=== PATIENT | male | born 1995 | race Caucasian/White ===

== ENCOUNTER 2021-04-01 16:05 | Outpatient (REF) | payer OTHER, SELFPAY | END 2021-04-01 16:06 | disposition home or self-care (01) | LOC: HO.LAB 16:05 | PROVIDERS: Visit Provider Nurse Practitioner Family | DX: Z20.822 Contact with and (suspected) exposure to COVID-19 (principal); R50.9 Fever, unspecified | CPT/HCPCS: U0003; U0005 ==

== ENCOUNTER 2022-03-06 08:51 | Outpatient (REF) | payer OTHER, SELFPAY ==
[2022-03-06 09:31] LABS: Binax Now Covid-19 Ag Positive (Negative)
[2022-03-06 09:32] LABS: Binax Internal Control QC Valid
== END 2022-03-06 08:52 | disposition home or self-care (01) ==
LOC: HO.HMGCLDS 08:51
PROVIDERS: Visit Provider Internal Medicine
DX: Z20.822 Contact with and (suspected) exposure to COVID-19 (principal); J06.9 Acute upper respiratory infection, unspecified
CPT/HCPCS: 87811; C9803

== ENCOUNTER 2024-09-01 12:52 | Outpatient (AMB) | payer OTHER, SELFPAY ==
--- NOTE | 2024-09-01 14:01 | MHC.OFFWIV ---
Intake Vital Signs 09/01/24 14:03 Height 5 ft 6 in Weight 165 lb BMI 26.6 BP 120/80 Blood Pressure Location Lt brachial Position Sitting Pulse 75 Pulse Source Pulse Oximeter Temp 98.5 F Temp Source Oral Pulse Oximetry (%) 98 Oxygen Delivery Method Room Air Intake Visit Reasons: EP-fever, chills, sore throat, body ache,dizziness Intake Note: Patient here for cough, fever, chills, body aches and dizziness that started 08/29. Patient Tobacco Use Status: Former Tobacco user Allergies No Known Allergies Allergy (Verified 09/01/24 14:04) Do you need a note to return to daycare/school/sports/work: No HPI EP-fever, chills, sore throat, body ache,dizziness HPI Details This is a 29-year-old male patient who presents to the walk-in clinic today with a 4 day history of body aches, headaches, fever, sore throat, productive cough with yellow/green sputum. Denies any shortness of breath or GI symptoms. Denies any known exposure to sick contacts. He states he is starting to feel somewhat improved today. [facility] Social History Patient Tobacco Use Status: Former Tobacco user Review of Systems Const All systems reviewed & are unremarkable except as noted in HPI and below Physical Exam Vital Signs: Last Vital Signs Temp 98.5 F 09/01/24 14:03 Pulse 75 09/01/24 14:03 BP 120/80 09/01/24 14:03 Pulse Ox 98 09/01/24 14:03 Oxygen Delivery Method Room Air 09/01/24 14:03 BMI result Body Mass Index 26.6 Const General: cooperative, healthy appearing and no acute distress HEENT Head: Yes normal to inspection Ears: hearing grossly normal bilaterally General nose exam: Normal external nose present Face and sinus: Yes normal facial exam Mouth: Normal oral and palatal mucosa present Throat: Yes abnormal tonsil (mild tonsilar hypertrophy) Neck Neck: Yes no lymphadenopathy Resp Effort & Inspection: normal respiratory effort and Actively coughing Quality: wet Auscultation: clear to auscultation bilaterally Cardio Rate: regular rate Rhythm: regular rhythm Skin General skin exam: no rashes or lesions noted Extrem General: Yes capillary refill normal and Yes no clubbing, cyanosis or edema Psych Appearance: grossly normal Mental Status: mental status grossly normal Speech and movement: Normal speech and movement present Results AMB Rapid Strep AMB Rapid Strep Negative Last Edit by STACIE Calixto on 09/01/24 14:27 Assessment & Plan Assessment & Plan (1) Upper respiratory infection: Code(s): J06.9 - Acute upper respiratory infection, unspecified Qualifiers: URI type: unspecified viral URI Qualified Code(s): J06.9 - Acute upper respiratory infection, unspecified Plan: Symptoms consistent with viral illness. Rapid strep was negative. Patient declines viral testing. We discussed self-limiting nature of viral illnesses and conservative measures for these symptoms, including otc cold/flu medications, rest, hydration, healthy food/vitamin intake. We discussed lack of efficacy with antibiotics for viral illnesses. I do feel he may benefit from short course of benzonatate. Reviewed indications, use, possible side effects of these medications. If he does not improve with conservative measures, or if symptoms worsen/new symptoms develop, he can return to the clinic or the emergency department if severe. Patient verbalizes understanding and agrees to plan. Orders: Orders AMB Rapid Strep Screen Today Z13.9 - Encounter for screening, unspecified Medications: New benzonatate 100 mg PO BID 7 days PRN 14 caps 0RF cough R05.9 - Cough, unspecified Coding Level of Care Code Est Pt Level 4 (66427) Diagnoses Viral upper respiratory tract infection J06.9 URI type: unspecified viral URI
[2024-09-01 14:03] VITALS: BP 120/80; PULSE 75; TEMP 36.9; O2SAT 98; BMI 26.6
== END 2024-09-01 14:34 | disposition home or self-care (01) ==
PROVIDERS: PCP Nurse Practitioner Family; Visit Provider Nurse Practitioner Family
DX: J06.9 Acute upper respiratory infection, unspecified (principal); Z13.9 Encounter for screening, unspecified

== ENCOUNTER → 2024-09-01 12:52 | Outpatient (BNVA) | payer OTHER, SELFPAY | PROVIDERS: PCP Nurse Practitioner Family | DX: J06.9 Acute upper respiratory infection, unspecified (principal) | CPT/HCPCS: 87880; 99212 ==

== ENCOUNTER 2024-10-19 08:11 | Outpatient (AMB) | payer OTHER, SELFPAY ==
[2024-10-19 08:18] VITALS: BP 122/80; PULSE 60; TEMP 36.6; O2SAT 99; BMI 26.8
--- NOTE | 2024-10-19 08:18 | A.OFFPC_ITS ---
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: No Accompanied by: Self / Same As Patient Allergies No Known Allergies Allergy (Verified 10/19/24 09:06) Medication List - Last Reconciled 10/19/24 by SHANON Love No Known Home Meds Tobacco use date assessed: 10/19/24 Dental Screening Dental Screen Date: 10/19/24 Did you have a dental visit in the last 12 months?: Yes Did you have a dental problem in the last 6 months where you did not have access to dental care?: No Was dental information given to patient?: Patient has dentist HPI Annual HPI Details History of Present Illness The patient is a 29-year-old male presenting with a primary complaint of left shoulder discomfort. He reports experiencing discomfort in the superior and anterior aspect of his left shoulder for the past couple of years. The patient associates the onset of pain with training exercises. He describes intermittent discomfort accompanied by a popping sensation. No pain is reported on specific tests such as the Acuna and Neer's impingement tests, but a positive Breana's test is recorded. In addition to shoulder pain, the patient reports that his girlfriend has noticed episodes of apnea at night, indicating potential sleep apnea. There are no reports of chest pain or shortness of breath. The patient denies any gastrointestinal issues such as blood in stool, diarrhea, or constipation. He also denies any symptoms of anxiety, depression, or homicidal and suicidal ideations. Health Maintenance - Referral to sleep medicine for evaluat ion of suspected sleep apnea. Social History - The patient is involved in tr [employer] exercises which are suggested to be related to the onset of shoulder discomfort. Review of Systems - Musculoskeletal: Reports left shoulder discomfort and popping sensation. - Respiratory: Denies chest pain and paige rtness of breath. - Gastrointestinal: Denies abdominal kyle n, blood in stool, constipation, and diarrhea. - Psychiatric: Denies anxiety, depressio n, suicidal ideations, and homicidal ideations. Physical Exam General: Cooperative, healthy appearing, comfortable, no acute distress and well developed Orientation: Patient oriented x3 Limitations: No limitations Head: Normal to inspection Ears: Hearing grossly normal bilaterally Nose: Normal external nose present Face and sinus: Normal facial exam Eyes: Appearance normal, both eyes and all related structures Neck: Normal visual inspection and Yes full ROM Respiratory: Normal respiratory effort and able to speak in complete sentences. Clear to auscultation bilaterally Cardiovascular: Regular rate and rhythm. Normal S1 and S2 GI: Normal to inspection. Soft to palpation and nontender Skin: No rashes or lesions noted Neuro: Patient oriented x3 Extremities: Normal to inspection, except for left shoulder discomfort with positive Jobes test. Results Plan - Recommend an X-ray of the left shoulde r to further evaluate the discomfort and potential structural issues. - Referral to physical therapy for manag ement of left shoulder discomfort. - Referral to sleep medicine for a sleep study to assess for obstructive sleep apnea. Discussion Notes I discussed the findings and the plan with the patient, including the potential for sleep apnea, explaining the need for a referral to sleep medicine for a sleep study. I also discussed the management of his shoulder discomfort, advising an X-ray for further assessment and the possible necessity of physical therapy. The patient was informed about the rationale for these evaluations and treatment plans, and he agreed to the proposed interventions. Patient Instructions - Schedule and complete the referred sle ep study for evaluation of sleep apnea. - Obtain an X-ray of the left shoulder a s advised. - Follow up with physical therapy for sh oulder pain management. - Contact the clinic if any new symptoms arise or if the shoulder discomfort worsens. [facility] Surgical History No pertinent past surgical history Social History Housing: [place] Patient Tobacco Use Status: Former Tobacco user service: No Current occupational status: employed Cognitive needs: No Hearing needs: No Vision needs: No Questionnaire PHQ-9 Over the last 2 weeks, how often have you been bothered by any of the following problems? 1. Little interest or pleasure in doing things: not at all 2. Feeling down, depressed, or hopeless: not at all 3. Trouble falling or staying asleep, or sleeping too much: several days 4. Feeling tired or having little energy: several days 5. Poor appetite or overeating: not at all 6. Feeling bad about yourself - or that you are a failure or have let yourself or your family down: not at all 7. Trouble concentrating on things, such as reading the newspaper or watching television: not at all 8. Moving or speaking so slowly that other people could have noticed. Or the opposite - being so fidgety or restless that you have been moving around a lot more than usual: not at all 9. Thoughts that you would be better off or of hurting yourself in some way: not at all Total score: 2 Depression Screening Interpretation: Negative Depression Screening Done: Yes 71700 - PHQ-9 Billing: Yes Source: Developed by Drs. Candelario Galvin, Corine Flower, Lux Gerard and colleagues, with an educational samantha from [employer]. Thrive Questionnaire Date Thrive assessed: 10/19/24 I am a: Patient What is your living situation today?: I have a steady place to live Within the past 12 months, did the food you bought not last and you didn't have the money to get more?: Never true Within the past 12 months, did you worry whether your food would run out before you got money to buy more?: Never true Do you have trouble paying for medicines?: No Do you have trouble getting transportation to medical appointments?: No Do you have trouble paying your heating and electricity bill?: No Do you have trouble taking care of your child, family member or friend?: No Do you have trouble with day-to-day activities such as bathing, preparing meals, shopping, managing finances, etc.?: No Are you currently unemployed and looking for a job?: No Are you interested in more education?: Yes Please select the resources that you would like help with: None Currently or been in a relationship where the following occur: No concerns reported THRIVE Score: 0 AUDIT C Alcohol Use Questionnaire (AUDIT-C) 1. How often do you have a drink containing alcohol?: Monthly or less 2. How many drinks containing alcohol do you have on a typical day when you are drinking?: 1 or 2 3. How often do you have six or more drinks on one occasion?: Never Total Score: 1 Score Reviewed/Action Taken: Yes ORLANDO-7 AMB Questionnaire ORLANDO-7 Date ORLANDO - 7 assessed: 10/19/24 Feeling nervous, anxious, or on edge: 0 = Not at all Not being able to stop or control worryin = Not at all Worrying too much about different things: 0 = Not at all Trouble relaxin = Not at all Being so restless that it is hard to sit still: 0 = Not at all Becoming easily annoyed or irritable: 0 = Not at all Feeling afraid as if something awful might happen: 0 = Not at all Total ORLANDO-7 score (0-4 normal; 5-9 mild; 10-14 moderate; 15-21 severe): 0 Source: Developed by Drs. Candelario Galvin, Corine Flower, Lux Gerard and colleagues, with an educational samantha from [employer]. ORLANDO-7 Assessment Billing ORLANDO-7 Assessment Tool: ORLANDO-7 Assessment 15826 Physical exam (Primary Care) Vital Signs: Last Vital Signs Temp 97.8 F 10/19/24 08:18 Pulse 60 10/19/24 08:18 BP 122/80 10/19/24 08:18 Pulse Ox 99 10/19/24 08:18 BMI result Body Mass Index 26.8 Tobacco/Smoking Status: Tobacco use Status Tobacco use date assessed 10/19/24 10/19/24 08:24 Patient Tobacco Use Status Former Tobacco user 10/19/24 08:24 PHQ-9: PHQ-9 Score PHQ-9: Total score 2 10/19/24 08:24 Depression Screening Interpretation: Negative Thrive Assessment: Date of Thrive Assessment Date Thrive assessed 10/19/24 10/19/24 08:24 Currently or been in a relationship where the following occur: No concerns repor justine Coding Level of Care Code New Pt Prev Care 18-39yr([id number] Diagnoses Physical exam Z00.00 Left shoulder pain M25.512 Sleep apnea G47.30 Additional Codes ORLANDO-7 Assessment Billing - ORLANDO-7 Assessment Tool: ORLANDO-7 Assessment 08223 ([id number]) PHQ-9 - 11680 - PHQ-9 Billing: Yes ([id number]) Assessment & Plan Assessment & Plan (1) Physical exam: Code(s): Z00.00 - Encounter for general adult medical examination without abnormal findings Category: Medical (2) Left shoulder pain: Code(s): M25.512 - Pain in left shoulder Category: Medical (3) Sleep apnea: Code(s): G47.30 - Sleep apnea, unspecified Category: Medical Plan . Orders: Orders Comprehensive [place]. Panel Fast Today Z00.00 - Encounter for general adult medical examination without abnormal findings XR shoulder LT min 2V Today M25.512 - Pain in left shoulder PT Evaluation and Treatment Today M25.512 - Pain in left shoulder Complete Blood Count Auto Diff Today Z00.00 - Encounter for general adult med ical examination without abnormal findings TSH reflex Free T4 Today Z00.00 - Encounter for general adult medical examination without abnormal findings UA CC w/rflx Micro + Cult Today Z00.00 - Encounter for general adult medical examination without abnormal findings Lipid Panel Today Z00.00 - Encounter for general adult medical examination without abnormal findings Referrals Sleep Medicine Referral G47.30 - Sleep apnea, unspecified
== END 2024-10-19 09:50 | disposition home or self-care (01) ==
PROVIDERS: PCP Nurse Practitioner Family; Visit Provider Nurse Practitioner Family
DX: Z00.00 Encounter for general adult medical examination without abnormal findings (principal); M25.512 Pain in left shoulder; G47.30 Sleep apnea, unspecified; Z23 Encounter for immunization

== ENCOUNTER → 2024-10-19 08:11 | Outpatient (BNVA) | payer OTHER, SELFPAY | PROVIDERS: PCP Nurse Practitioner Family; Visit Provider Nurse Practitioner Family | DX: Z00.00 Encounter for general adult medical examination without abnormal findings (principal); Z23 Encounter for immunization; M25.512 Pain in left shoulder; G47.30 Sleep apnea, unspecified | CPT/HCPCS: 90471; 90715; 96127 ==

== ENCOUNTER 2024-10-20 09:34 | Outpatient (REF) | payer OTHER, SELFPAY ==
--- NOTE | ~2024-10-20 | XR_ITS ---
EXAMINATION: XR SHOULDER, LEFT CLINICAL INFORMATION: M25.512 - Pain in left shoulder COMPARISON: None available. TECHNIQUE: AP external rotation, Grashey, scapular Y, and axillary views of the left shoulder. FINDINGS: Normal bone mineralization. No fracture, dislocation, or suspicious bone lesion. Normal alignment. The glenohumeral joint is normal. The AC joint mildly widened, reflecting possible prior subacromial decompression. There is a neutral lateral acromion. No undersurface spurring. The subacromial space is preserved. Remainder of the soft tissue and bony structures appear normal. XR/XR shoulder LT min 2V IMPRESSION: No acute findings left shoulder joint. Electronically signed by: Matthew Thomas MD 10/20/2024 12:14 PM EVIE MINA
[2024-10-20 13:20] LABS: MANUAL DIFF FLAG NO
[2024-10-20 13:27] LABS: Basophils Percent Auto 0.5 % (0-2); Eosinophils Percent Auto 0.5 % (0-4); Hematocrit 41.7 % (42.0-52.0); Hemoglobin 14.2 g/dl (14.0-18.0); Imm Gran Abs Auto 0.01 X10*3/uL (0.00-0.03); Imm Gran Pct Auto 0.2 % (0.0-0.4); Lymphocytes Absolute Auto 1.2 X10*3/uL (1.2-4.9); Lymphocytes Percent Auto 27.1 % (20-40); Mean Corpuscular HGB Conc 34.1 g/dl (31.0-36.0); Mean Corpuscular Hemoglobin 28.9 pg (27.0-33.0); Mean Corpuscular Volume 84.8 fL (80.0-98.0); Mean Platelet Volume 10.9 fL (9.4-12.4); Monocytes Absolute Auto 0.3 X10*3/uL (0.1-1.2); Monocytes Percent Auto 6.6 % (2-11); Neutrophils Absolute Auto 2.9 x10*3/uL (2.0-8.3); Neutrophils Percent Auto 65.1 % (45-73); Platelet Count 178 X10*3/uL (160-400); Red Blood Count 4.92 X10*6/uL (4.60-5.80); Red Cell Distribution Width 12.6 % (11.0-16.0); White Blood Count 4.4 X10*3/uL (4.8-10.8)
[2024-10-20 13:50] LABS: Appearance Urine Clear; Color Urine Yellow; Glucose Urine UA Negative (Negative); Leukocyte Esterase Urine Negative (Negative); Nitrite Urine Negative (Negative); PH 6.5 (5.0-9.0); Urine Blood Negative (Negative); Urine Ketones Negative (Negative); Urine Protein Negative (Neg-Trace)
[2024-10-20 14:05] LABS: Alanine Aminotransferase 19 U/L (0-40); Albumin Level 4.4 g/dL (3.5-5.0); Alkaline Phosphatase 52 U/L (39-117); Anion Gap 11 (12-20); Aspartate Amino Transferase 22 U/L (5-37); Bilirubin Total 0.6 mg/dL (0.0-1.0); Blood Urea Nitrogen 20 mg/dL (9-16); Calcium 9.6 mg/dL (8.4-10.2); Carbon Dioxide 29 mmol/L (22-29); Chloride 104 mmol/L (96-108); Cholesterol 189 mg/dL (<200); Estimated Glomerular Filt Rate > 60; Glucose Fasting 89 mg/dL (60-99); HDL Cholesterol 63 mg/dL (>40); LDL Cholesterol Calculated 116 mg/dL (<100); Potassium 4.2 mmol/L (3.3-5.1); Sodium 140 mmol/L (135-145); TSH reflex Free T4 1.54 uIU/mL (0.32-4.0); Total Protein 7.9 g/dL (6.5-8.0); Triglycerides 53 mg/dL (<150)
== END 2024-10-20 09:35 | disposition home or self-care (01) ==
LOC: HO.HMGCX 09:34
PROVIDERS: PCP Nurse Practitioner Family; Visit Provider Nurse Practitioner Family
DX: M25.512 Pain in left shoulder (principal); Z13.6 Encounter for screening for cardiovascular disorders; Z00.00 Encounter for general adult medical examination without abnormal findings
CPT/HCPCS: 36415; 73030; 80053; 80061; 81003; 84443; 85025

== ENCOUNTER → 2024-10-20 09:38 | Outpatient (BNV) | payer OTHER, SELFPAY | PROVIDERS: PCP Nurse Practitioner Family; Visit Provider Radiology Diagnostic Radiology | DX: M25.512 Pain in left shoulder (principal) | CPT/HCPCS: 73030 ==

== ENCOUNTER 2024-11-15 09:15 | Outpatient (REF) | payer OTHER, SELFPAY ==
[2024-11-15 10:23] LABS: MANUAL DIFF FLAG NO
[2024-11-15 10:34] LABS: Basophils Percent Auto 0.2 % (0-2); Eosinophils Percent Auto 0.6 % (0-4); Hemoglobin 13.9 g/dl (14.0-18.0); Imm Gran Abs Auto 0.01 X10*3/uL (0.00-0.03); Imm Gran Pct Auto 0.2 % (0.0-0.4); Lymphocytes Absolute Auto 1.2 X10*3/uL (1.2-4.9); Lymphocytes Percent Auto 25.1 % (20-40); Mean Corpuscular HGB Conc 33.9 g/dl (31.0-36.0); Mean Corpuscular Hemoglobin 28.7 pg (27.0-33.0); Mean Corpuscular Volume 84.7 fL (80.0-98.0); Mean Platelet Volume 10.7 fL (9.4-12.4); Monocytes Absolute Auto 0.3 X10*3/uL (0.1-1.2); Monocytes Percent Auto 5.7 % (2-11); Neutrophils Absolute Auto 3.3 x10*3/uL (2.0-8.3); Neutrophils Percent Auto 68.2 % (45-73); Platelet Count 173 X10*3/uL (160-400); Red Blood Count 4.84 X10*6/uL (4.60-5.80); Red Cell Distribution Width 12.6 % (11.0-16.0); White Blood Count 4.9 X10*3/uL (4.8-10.8)
== END 2024-11-15 09:16 | disposition home or self-care (01) ==
LOC: HO.HMGCLDS 09:15
PROVIDERS: PCP Nurse Practitioner Family; Visit Provider Nurse Practitioner Family
DX: D72.829 Elevated white blood cell count, unspecified (principal)
CPT/HCPCS: 36415; 85025